=== PATIENT | male | born 1955 | race Caucasian/White ===

== ENCOUNTER 2017-08-01 15:32 | Emergency (ER) | payer MEDICAID ==
[~2017-08-01] VITALS: Ht 177.8 cm; Wt 86.2 kg
[2017-08-01 15:49] VITALS: BP_SYST 144
[2017-08-01] MEDS ORDERED: traMADol HCL HCL 50 MG TABLET (ULTRAM) PO ONE (16:00)
[2017-08-01] MEDS ORDERED: methylPREDNISolone SOD SUCC/PF 62.5 MG/ML VIAL IM ONE (16:00)
[2017-08-01] MEDS ORDERED: fentaNYL CITRATE/PF 100 MCG/2 ML AMP IM ONE (16:30)
[2017-08-01 17:30] VITALS: BP_SYST 142
== END 2017-08-01 17:30 | disposition home or self-care (01) ==
LOC: SED 15:32
DX: S39.012A Strain of muscle, fascia and tendon of lower back, initial encounter (principal); R03.0 Elevated blood-pressure reading, without diagnosis of hypertension; X58.XXXA Exposure to other specified factors, initial encounter; Y93.89 Activity, other specified; Y92.89 Other specified places as the place of occurrence of the external cause; Y99.8 Other external cause status
CPT/HCPCS: 72100; 96372; 99284; J2930; J3010

== ENCOUNTER 2017-08-07 16:39 | Emergency (ER) | payer MEDICAID ==
[~2017-08-07] VITALS: Ht 180.3 cm; Wt 95.3 kg
[2017-08-07 16:45] VITALS: BP_SYST 160
[2017-08-07] MEDS ORDERED: KETOROLAC TROMETHAMINE 60 MG/2 ML VIAL IM ONE (17:15)
[2017-08-07 17:59] VITALS: BP_SYST 138
== END 2017-08-07 17:59 | disposition home or self-care (01) ==
LOC: SED 16:39
DX: S33.5XXA Sprain of ligaments of lumbar spine, initial encounter (principal); X58.XXXA Exposure to other specified factors, initial encounter; Y93.89 Activity, other specified; Y92.89 Other specified places as the place of occurrence of the external cause; Y99.8 Other external cause status
CPT/HCPCS: 96372; 99283; J1885